=== PATIENT | male | born 1985 | race Caucasian/White ===

== ENCOUNTER 2017-08-11 02:35 | Emergency (ER) | payer OTHER ==
--- NOTE | 2017-08-11 03:19 | XRAY Preliminary Report ---
Exam: XR CHEST 2 VIEW PA/LAT IMPRESSION: Normal 2-view chest radiography. [facility] SITE ID: [id number]
--- NOTE | 2017-08-11 03:22 | XRAY Report ---
EXAM: CHEST RADIOGRAPHY EXAM DATE: 08/11/2017 02:56 AM. CLINICAL HISTORY: Left sided chest pain. COMPARISON: None. TECHNIQUE: 2 views. FINDINGS: Lungs/Pleura: No focal opacities evident. No pleural effusion. No pneumothorax. Normal volumes. Mediastinum: Heart and mediastinal contours are unremarkable. Other: None. IMPRESSION: Normal 2-view chest radiography. [facility] Referring Provider Line: [phone] SITE ID: [id number]
--- NOTE | 2017-08-11 03:45 | ED Physician Documentation ---
PD HPI CHEST PAIN - Stated complaint Stated Complaint: CHEST DISCOMFORT - Chief complaint Chief Complaint: General - History obtained from History obtained from: Patient - History of Present Illness Timing - onset: How many weeks ago (1) Timing - details: Intermittant Quality: Aching Location: Substernal Worsened by: No: Exertion, Inspiration Associated symptoms: No: Shortness of air, Diaphoresis, Nausea, Feeling faint / dizzy Similar symptoms before: Work up / diagnostics Recently seen: Clinic - Additional information Additional information: Patient is a 31 year old male with no significant past medical history who is presenting to the emergency department for chest pain. Patient states that he runs about 3-4 miles almost every day and that occassional he has sub sternal chest pressure. Patient states that it is not when he is running. Patient states that currently it is about a /10. Patient states that he was diagnosed with constrochondritis but wanted to be sure. Review of Systems Constitutional: denies: Fever, Chills Eyes: denies: Decreased vision, Photophobia Ears: denies: Ear pain, Drainage/discharge Nose: denies: Rhinorrhea / runny nose, Congestion Throat: reports: Reviewed and negative Cardiac: reports: Chest pain / pressure. denies: Palpitations, Pedal edema, Calf pain Respiratory: denies: Dyspnea, Cough, Wheezing GI: denies: Abdominal Pain, Nausea, Vomiting : reports: Reviewed and negative Skin: denies: Rash, Lesions Musculoskeletal: denies: Neck pain, Back pain, Extremity pain, Extremity swelling Neurologic: reports: Reviewed and negative Psychiatric: reports: Reviewed and negative Immunocompromised: denies: Immunocompromised PD PAST MEDICAL HISTORY - Past Medical History Past Medical History: No - Past Surgical History Past Surgical History: No - Social History Does the pt smoke?: No Smoking Status: Never smoker Does the pt drink ETOH?: No Does the pt have substance abuse?: No - Immunizations Immunizations are current?: Yes - POLST Patient has POLST: No PD ED PE NORMAL - Vitals Vital signs reviewed: Yes - General General: Alert and oriented X 3, No acute distress, Well developed/nourished - HEENT HEENT: Atraumatic, PERRL, Moist mucous membranes, Pharynx benign - Neck Neck: Supple, no meningeal sign, No JVD - Cardiac Cardiac: RRR, No murmur - Respiratory Respiratory: No respiratory distress, Clear bilaterally - Abdomen Abdomen: Soft, Non tender, Non distended - Derm Derm: Normal color, Warm and dry, No rash - Extremities Extremities: Normal ROM s pain, No calf tenderness / cord - Neuro Neuro: Alert and oriented X 3, No motor deficit, No sensory deficit, Normal speech - Psych Psych: Normal mood Results - Vitals Vitals: Vital Signs - 24 hr 08/11/17 02:38 Temperature 36.8 C Heart Rate 78 Respiratory 17 Rate Blood Pressure 134/81 H O2 Saturation 99 Oxygen O2 Source Room air - EKG (time done) 0243 Rate: Rate (enter#) (72) Rhythm: NSR [place]: Normal Intervals: Normal MS Ischemia: ST elevation c/w repol Compare to prior EKG: Old EKG unavailable - Labs Labs: Laboratory Tests 08/11/17 03:00 Troponin I < 0.04 - Rads (name of study) chest x-ray Radiology: Final report received (normal chest x-ray) PD MEDICAL DECISION MAKING - ED course Complexity details: reviewed old records, reviewed results, re-evaluated patient , considered differential, d/w patient ED course: Patient was seen and examined at bedside. Patient was well appearing and in no distress. Patient's diagnostics including troponin, chest x-ray and ekg were all within normal limits. Patient had a HEART score of 0, and a PERC score of 0. Patient required no further work up and was stable for discharge with outpatient follow up. Departure - Departure Disposition: 01 Home, Self Care Clinical Impression: Chest pain in adult Condition: Good Instructions: ED Chest Pain NonCardiac Follow-Up: ZAC LAMA [Primary Care Provider] - As Needed Comments: Your diagnostics today were within normal limits. your pain is unlikely to be cardiovascular or pulmonary in nature. You can keep exercising. You should follow up with your doctor for routine care. You may return to the emergency department at any time for new, worsening or uncontrollable symptoms.
[2017-08-11 04:05] VITALS: BP 130/80
== END 2017-08-11 04:04 | disposition home or self-care (01) ==
LOC: ED 02:35
DX: R07.9 Chest pain, unspecified (principal)
CPT/HCPCS: 36415; 71020; 84484; 93005; 99283

== ENCOUNTER 2017-10-22 17:15 | Emergency (ER) | payer OTHER ==
[2017-10-22 17:21] VITALS: BP 101/82
--- NOTE | 2017-10-22 17:40 | ED Physician Documentation ---
History of Present Illness - Stated complaint Stated Complaint: NAUSEA - Chief complaint Chief Complaint: General - History obtained from History obtained from: Patient - History of Present Illness Timing: Last night Pain level max: 5 Pain level now: 4 Improved by: nothing Worsened by: nothing - Additonal information Additional information: Patient is a 32-year-old male who presents to the emergency department stating he is not feeling well for the past 24 hours. His 2-year-old daughter was recently diagnosed with influenza. He has developed a headache, neck pain, nausea, mild cough and generalized body aches. Has not taken anything for this today. Review of Systems Ten Systems: 10 systems reviewed and negative Constitutional: reports: Myalgias. denies: Fever, Chills Ears: denies: Ear pain Nose: denies: Rhinorrhea / runny nose, Congestion Respiratory: reports: Cough GI: reports: Nausea. denies: Abdominal Pain, Vomiting, Diarrhea Skin: denies: Rash Musculoskeletal: denies: Back pain Neurologic: denies: Seizure, Confused PD PAST MEDICAL HISTORY - Past Medical History Past Medical History: No - Past Surgical History Past Surgical History: No - Present Medications Home Medications: Ambulatory Orders Medication Instructions Recorded Confirmed Benzonatate [Tessalon Perle] 100 - 200 mg PO TID PRN #30 capsule 10/22/17 Ibuprofen [Motrin] 800 mg PO Q8H PRN #30 tablet 10/22/17 Ondansetron Odt [Zofran] 4 mg TL Q6H PRN #10 tablet 10/22/17 - Allergies Allergies/Adverse Reactions: Allergies Allergy/AdvReac Type Severity Reaction Status Date / Time Penicillins Allergy Unknown Verified 10/22/17 17:21 - Social History Does the pt smoke?: No Smoking Status: Never smoker Does the pt drink ETOH?: No Does the pt have substance abuse?: No - Immunizations Immunizations are current?: Yes - POLST Patient has POLST: No PD ED PE NORMAL - Vitals Vital signs reviewed: Yes - General General: Alert and oriented X 3, No acute distress, Well developed/nourished - HEENT HEENT: PERRL, Ears normal, Moist mucous membranes, Pharynx benign - Neck Neck: Supple, no meningeal sign, No adenopathy, Other (FROM without pain) - Cardiac Cardiac: RRR, Strong equal pulses - Respiratory Respiratory: No respiratory distress, Clear bilaterally - Abdomen Abdomen: Soft, Non tender, Non distended - Back Back: No CVA TTP, No spinal TTP - Derm Derm: Warm and dry, No rash - Neuro Neuro: Alert and oriented X 3 - Psych Psych: Normal mood, Normal affect Results - Vitals Vitals: Vital Signs - 24 hr 10/22/17 17:18 Temperature 36.8 C Heart Rate 77 Respiratory 18 Rate Blood Pressure 101/82 H O2 Saturation 98 Oxygen O2 Source Room air PD MEDICAL DECISION MAKING - ED course Complexity details: considered differential, d/w patient ED course: Patient is a 32-year-old male who presents to the emergency department with what sounds like early symptoms of influenza. We discussed the risks and benefits of Tamiflu, he declines this at this time. Patient is well-appearing, nontoxic. Afebrile. Will continue supportive care and follow-up with his doctor. His 2-year-old daughter recently tested positive for the flu so he declines testing at this time as well. Patient counseled regarding signs and symptoms for which I believe and urgent re-evaluation would be necessary. Patient with good understanding of and agreement to plan and is comfortable going home at this time This document was made in part using voice recognition software. While efforts are made to proofread this document, sound alike and grammatical errors may occur. Departure - Departure Disposition: 01 Home, Self Care Clinical Impression: Influenza Condition: Good Instructions: ED Flu Follow-Up: ZAC LAMA [Primary Care Provider] - Within 1 week (if not better) Prescriptions: Benzonatate [Tessalon Perle] 100 - 200 mg PO TID PRN #30 capsule PRN Reason: Cough Ibuprofen [Motrin] 800 mg PO Q8H PRN #30 tablet PRN Reason: PAIN &/OR FEVER Ondansetron Odt [Zofran] 4 mg TL Q6H PRN #10 tablet PRN Reason: Nausea / Vomiting Comments: Return if you worsen. Drink plenty of fluids and rest. Forms: Activity restrictions
== END 2017-10-22 18:01 | disposition home or self-care (01) ==
LOC: ED 17:15
DX: J11.1 Influenza due to unidentified influenza virus with other respiratory manifestations (principal)
CPT/HCPCS: 99283